=== PATIENT | male | born 1995 | race Caucasian/White ===

== ENCOUNTER 2024-12-28 13:51 | Emergency (ER) | payer OTHER, SELFPAY ==
[2024-12-28 13:53] VITALS: BP 150/90; PULSE 92; RESP 16; TEMP 36.6; O2SAT 99; BMI 27.0
--- NOTE | 2024-12-28 14:08 | RAD_ITS ---
PROCEDURE: RAD/Ankle 2 Views
--- NOTE | 2024-12-28 14:09 | ED.VIS.FALL ---
HPI HPI - Fall History of Present Illness Chief Complaint: Trauma Narrative Narrative: 29-year-old male presents emergency department for complaint of ankle pain. Patient states that he was at work trying to drill something in the ground when he lost balance falling back and twisted his right ankle. States that he did not have any head injury, loss of consciousness. Denying any use of blood thinners. Sensation intact with pain over the medial aspect of the right ankle. PFSH PFSH Medical History no medical history Home Medications ?Medication ?Instructions ?Recorded ?Last Taken ?Type hydrocodone-acetaminophen 5-325mg 1 tab PO Q6H PRN PRN Pain 3 days 12/28/24 Unknown Rx 5mg-325mg #12 TABLETS Allergy/AdvReac Type Severity Reaction Status Date / Time No Known Allergies Allergy Verified 12/28/24 13:56 Family History no significant family his Surgical History no surgical history Social History Smoking Status: Never smoker EXAM Physical Exam Const Vital Signs: 12/28/24 13:53 12/28/24 13:58 Temperature 98 F Temperature Source Oral Pulse Rate 92 Respiratory Rate 16 Respiratory Effort Normal Blood Pressure 150/90 H Blood Pressure Mean 110 Pulse Ox 99 Oxygen Delivery Method Room Air Room Air General Appearance ED: NAD HEENT Reports normocephalic atraumatic Eyes PERRL and EOMs intact bilaterally Neck full ROM Chest Wall inspection of chest normal Resp normal respiratory effort Cardio regular rate GI non-tender and non-distended Back/Spine Thoracic Spine / Upper Back: Negative for thoracic spinal tenderness Lumbar Spine / Lower Back: Negative for lumbar spinal tenderness Extremity Extremity Narrative: 2+ DP pulses bilaterally, 2+ PT pulses bilaterally. Neuro vastly intact. Edema and tenderness over the medial malleolus of right ankle. Skin Lesions: no lesions Rashes: no rashes MDM MDM MDM Narrative Medical decision making narrative: 29-year-old male presents emergency department for complaint of ankle pain. Patient states that he was at work trying to drill something in the ground when he lost balance falling back and twisted his right ankle. States that he did not have any head injury, loss of consciousness. Denying any use of blood thinners. Sensation intact with pain over the medial aspect of the right ankle. On my physical exam patient having some tenderness over the medial malleolus of the right ankle with swelling. No lacerations, lesions or tenderness at the proximal fibula or tibia. Normocephalic/atraumatic with GCS of 15. No other signs of injury. X-ray of the right ankle showed oblique distal right fibula fracture with some widening between talus and medial malleolus. Spoke to Dr. Redmond with orthopedic surgery recommending sugar-tong and posterior splint with close follow-up this week. I did apply a posterior and sugar-tong splint with Ortho-Glass. Patient neurovascularly intact prior to splint application and applied splint with reexamination patient continues to be neurovascularly intact. Patient educated on elevating, icing and pain medication given for home. Discussed close follow-up within 1 week to see orthopedic surgery as he would likely need surgical intervention. Radiography Diagnostic Testing: Clinical Impression(s) from Imaging Studies Ankle X-Ray 12/28/24 14:08 IMPRESSION: A mildly displaced oblique intra-articular fracture of the distal right fibula is seen. Marked widening of the distance between the talus and medial malleolus is seen, also indicative medial ligament significant injury, with associated lateral subluxation of the talus present. On lateral imaging, normal contour of the Achilles tendon is seen. Questionable nondisplaced fracture of the posterior malleolus. Reading Location: [facility] X-ray of right ankle showing displaced oblique distal right fibula fracture with widening between talus and medial malleolus Procedures Lower Extremity Splints Lower Extremity Splint: Orthoglass Splint Fabrication: Pre-fabricated Location: Right (sugar tong and posterior applied, neurovascularly intact pre and post splint application) Discharge Plan Triage Chief Complaint: Trauma ED Provider: Elizabeth Lucas Dx/Rx/DC Orders Clinical Impression: Fracture of distal end of left fibula Prescriptions: New hydrocodone-acetaminophen 5-325 mg tablet 1 tab PO Q6H PRN PRN (Reason: Pain) 3 Days Qty: 12 0RF Primary Care Provider: Simone Everett Referrals: Simone Everett MD [Primary Care Provider, Family Practice] Laci Redmond DO [Med Staff - Active Staff, Orthopedics] - 12/30/24 Referral Note: f/u fracture Activity Restrictions/Additional Instructions: Please do not bear any weight on your extremity and use crutches. Elevate and ice. He may take pain medications as needed for breakthrough pain. Please follow-up with Dr. Redmond with orthopedic surgery this week. Print Language: Somali Disposition Disposition: Home, Self Care
[2024-12-28] MEDS: fentaNYL 100 MCG/2 ML Ampul 50 MCG IV (15:42)
[2024-12-28 15:52] VITALS: BP 136/74; PULSE 86; O2SAT 97
--- NOTE | 2024-12-28 16:00 | ED.RN ---
ASSISTED DR CORREA IN SPLINTING RT ANKLE. PT MEDICATED PRIOR
[2024-12-28 16:06] VITALS: BP 136/74; PULSE 86; RESP 16; TEMP 36.6; O2SAT 97
== END 2024-12-28 16:13 | disposition home or self-care (01) ==
PROVIDERS: Emergency Provider Student in an Organized Health Care Education/Training Program; PCP Family Medicine; Visit Provider Student in an Organized Health Care Education/Training Program
DX: S82.431A Displaced oblique fracture of shaft of right fibula, initial encounter for closed fracture (principal); W19.XXXA Unspecified fall, initial encounter; X50.1XXA Overexertion from prolonged static or awkward postures, initial encounter
CPT/HCPCS: 29515; 73600; 96372; 96374; 99285